=== PATIENT | female | born 2000 | race Caucasian/White ===

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

== ENCOUNTER 2019-07-09 14:35 | Emergency (ER) | payer OTHER ==
--- OUTSIDE RECORDS SUMMARY | 2019-07-09 15:19 | XMS REPORT | Continuity of Care Document ---
:2000 External Reference #:[id number] Author Name Xin [place] [address] Problems Active Problems Provider Date Asthma RICO Davis Onset: 12/22/2013 Allergic asthma Jose Walters MD Onset: 12/20/2015 Note: getting allergy shots Atopic dermatitis Anh Almaguer NP Onset: 02/28/2018 Social History Type Date Description Comments Sex Unknown Tobacco Use Start: Unknown Patient smoking status is unknown Guns in Home Yes, Locked Up Allergies, Adverse Reactions, Alerts Active Allergies Reaction Severity Comments Date NKDA 12/21/2012 Dust Mites 12/22/2013 Grass 12/22/2013 Pollen 12/22/2013 Cats 12/22/2013 Dogs 12/22/2013 Medications Active Medications SIG Qnty Indications Ordering Date Provider Triamcinolone apply to affected 30gm L20.9 Anh Almaguer NP 02/28/2018 Acetonide area twice a day 0.025% Ointment for no more than 2 weeks Marie Allergy 1 by mouth every 30tabs Jose 08/03/2017 60mg day MD Selena Tablets Xopenex HFA inhale 2 puffs Unknown 45mcg/Act by mouth every 4 Aerosol hours as needed Dulera 2 puff twice a Unknown 200-5mcg/Act day Aerosol Lo Loestrin Fe 1 by mouth every Unknown 1mg-10 mcg day / 10 mcg Tablets History Medications Amoxicillin take 2 caps by 40caps J01.90 Xin Carrasquillo NP 12/28/2018 - 500mg mouth twice a 02/28/2019 Capsules day x 10 days Immunizations CPT Code Status Date Vaccine Lot # [id number] Given 02/20/2019 Influenza Virus Vaccine, Quadrivalent, Split, [id number] Preservative Free 99852 Given 02/20/2019 Flu Vaccine, Split [id number] Given 02/20/2019 Influenza Vaccine 6-35 M Im Preservative Free 61115 Given 02/28/2018 Influenza Virus Vaccine, Quadrivalent, Split, [id number] Preservative Free 22783 Given 02/28/2018 Flu Vaccine, Split 65565 Given 02/28/2018 Influenza Vaccine 6-35 M Im Preservative Free 30841 Given 2017 Trumenba [id number] 78089 Given 2016 Meningococcal Conjugate Vaccine (Menveo) [id number] 43591 Given 2016 Trumenba [id number] 97265 Given 12/21/2014 Flu Vaccine, Split [id number] 34111 Given 12/22/2013 Flu Vaccine, Split [id number] 34600 Given 11/01/2013 Gardasil [id number] 00158 Given 07/05/2013 Gardasil [id number] 78883 Given 01/24/2013 Flu Vaccine, Split [id number] 60790 Given 12/21/2012 Gardasil [id number] 20396 Given 01/07/2012 Flu Mist 41373 Given 12/10/2010 Menactra/menveo 83577 Given 12/10/2010 Tdap/Adacel 26664 Given 01/28/2010 Flu Mist 78537 Given 03/04/2009 [id number] 23870 Given 01/15/2009 Flu Mist 90136 Given 01/06/2008 Flu Vaccine, Split 36629 Given 01/06/2008 Hepatitis A Vaccine 49366 Given 05/26/2007 Flu Vaccine, Split 47058 Given 11/09/2006 Varicella/Chicken Pox Vaccine 73994 Given 11/09/2006 Hepatitis A Vaccine 01374 Given 03/20/2005 Flu Vaccine, Split 54647 Given 12/23/2004 IPV 22374 Given 12/23/2004 MMR 56773 Given 12/23/2004 DTaP 76426 Given 03/03/2004 Flu Vaccine, Split 38288 Given 03/08/2003 Flu Vaccine, Split 42268 Given 05/19/2002 Flu Vaccine, Split 60216 Given 04/10/2002 Flu Vaccine, Split 95603 Given 04/12/2001 DtaP-Hib 31825 Given 01/11/2001 Pneumococcal Vaccine 57572 Given 01/11/2001 IPV 64622 Given 01/11/2001 Varicella/Chicken Pox Vaccine 44773 Given 10/12/2000 Hepatitis B/Hib Combvax 09134 Given 10/12/2000 MMR 64906 Given 04/13/2000 DTaP 91914 Given 02/10/2000 Hep.B Pediatric/Adolescent 49750 Given 02/10/2000 IPV 86139 Given 02/10/2000 DTaP 29210 Given 1999 Hepatitis B/Hib Combvax 25239 Given 1999 IPV 97369 Given 1999 DTaP Vital Signs Date Vital Result Comment 06/27/2019 5:32pm Body Temperature 98.8 F BP Systolic 114 mmHg BP Diastolic 78 mmHg Heart Rate 111 /min Respiratory Rate 20 /min Weight 123.50 lb Weight Percentile 42nd 02/20/2019 3:05pm Body Temperature 98.5 F BP Systolic 127 mmHg BP Diastolic 83 mmHg Heart Rate 95 /min Height 61 inches 5'1" Height in cm's 154.9 cm Height Percentile 10 % Weight 126.12 lb Weight Percentile 48th BMI (Body Mass Index) 23.8 kg/m2 Body Mass Index Percentile 72 % Right Visual Acuity Distance 20/20 Left Visual Acuity Distance 20/20 Results Description No Information Available Procedures Date Code Description Status 02/20/2019 16483 Visual Acuity Screen Bilat. Completed 02/20/2019 26775 Auditometry, Pure Tone Bilat Completed Medical Devices Description No Information Available Encounters Type Date Location Provider Dx Diagnosis Office Visit 02/20/2019 Main Office Anh Almaguer NP Z00.00 Encntr for general 3:00p adult medical exam w/o abnormal findings Z23 Encounter for immunization Office Visit 12/28/2018 8:15a Main Office Xin Carrasquillo NP J01.90 Acute sinusitis, unspecified Assessments Date Code Description Provider 06/27/2019 K58.0 Irritable bowel syndrome with diarrhea Xin Carrasquillo NP 02/20/2019 Z00.00 Encounter for general adult medical examination Anh Almaguer NP without abnormal findings 02/20/2019 Z23 Encounter for immunization Anh Almaguer NP 12/28/2018 J01.90 Acute sinusitis, unspecified Xin Carrasquillo NP Plan of Treatment 06/27/2019 - Xin Carrasquillo, NPK58.0 Irritable bowel syndrome with diarrheaComments:We will refer to GI for further work up. It is suspected these episode are related to her anxiety.Follow up:As needed. Functional Status Description No Information Available Mental Status Description No Information Available Referrals Description No Information Available
[2019-07-09 15:25] VITALS: BP 107/70
[2019-07-09 15:36] LABS: Influenza A Molecular POSITIVE (Negative)
--- NOTE | 2019-07-09 15:47 | UC ---
FLU HPI - HPI Summary HPI Summary: 18-year-old female presents with sudden onset of general malaise, fatigue, headache, body aches, nasal congestion, mild sore throat, and a dry nonproductive cough. Reports nausea. No measured fever however is complaining of chills. She did receive her flu shot this season. Denies ear pain, dysphagia, chest pain, shortness of breath, wheezing, abdominal pain, vomiting, or diarrhea. - History of Current Complaint Chief Complaint: UCRespiratory Stated Complaint: FLU SYMPTOMS Time Seen by Provider: 07/09/19 15:19 Hx Obtained From: Patient Hx Last Menstrual Period: 3-4 months ago; on bcp Pain Intensity: 5 - Allergy/Home Medications Allergies/Adverse Reactions: Allergies Allergy/AdvReac Type Severity Reaction Status Date / Time No Known Allergies Allergy Verified 07/09/19 15:21 Home Medications: Home Medications Levalbuterol HFA INHALER* [Xopenex Hfa Inhaler*] 2 puff INH Q6H #1 mdi 09/26/17 [Rx Confirmed 07/09/19] Norethindr/Eth Estradiol(Nf) [Lo Loestrin Fe (NF)] 1 tab QAM 09/26/17 [History Confirmed 07/09/19] Benzonatate CAP* [Tessalon 100 MG CAP*] 100 mg PO TID PRN #21 cap 07/09/19 [Rx] Budesonide/Formote 80/4.5(NF) [Symbicort 80/4.5 (NF)] 2 puff BID 07/09/19 [ History Confirmed 07/09/19] Oseltamivir CAP* [Tamiflu CAP*] 75 mg PO BID #10 cap 07/09/19 [Rx] PMH/Surg Hx/FS Hx/Imm Hx Respiratory History: Asthma - Surgical History Surgical History: Yes Surgery Procedure, Year, and Place: wisdom teeth - Family History Known Family History: Positive: Other - asthma - Social History Occupation: Student Lives: Dormitory/Roommates Alcohol Use: None Substance Use Type: None Smoking Status (MU): Never Smoked Tobacco - Immunization History Vaccination Up to Date: Yes Review of Systems All Other Systems Reviewed And Are Negative: Yes Constitutional: Positive: Chills, Fatigue Skin: Negative: Rash ENT: Positive: Sore Throat, Nasal Discharge, Sinus Congestion. Negative: Ear Ache Respiratory: Positive: Cough. Negative: Shortness Of Breath Cardiovascular: Negative: Chest Pain Gastrointestinal: Positive: Nausea. Negative: Abdominal Pain, Vomiting, Diarrhea Genitourinary: Positive: Negative Musculoskeletal: Positive: Myalgia Neurological/Mental Status: Positive: Headache Is Patient Immunocompromised?: No Physical Exam - Summary Physical Exam Summary: GENERAL APPEARANCE: Well developed, well nourished, alert and cooperative, and appears to be in no acute distress. EYES: Conjunctiva clear. No drainage. EARS: External auditory canals and tympanic membranes clear, hearing grossly intact. NOSE: Moderate nasal congestion with clear nasal discharge. THROAT: Mild pharyngeal erythema without tonsilar inflammation, swelling, exudate, or lesions. Uvula midline. NECK: Neck supple, non-tender without lymphadenopathy. CARDIAC: Normal S1 and S2. No S3, S4 or murmurs. Rhythm is regular. There is no peripheral edema, cyanosis or pallor. Extremities are warm and well perfused. Capillary refill is less than 2 seconds. Peripheral pulses intact. LUNGS: Clear to auscultation without rales, rhonchi, wheezing or diminished breath sounds. Dry, nonproductive cough. ABDOMEN: Positive bowel sounds. Soft, nondistended, nontender. No guarding or rebound. No masses or hepatosplenomegally. MUSKULOSKELETAL: ROM intact to all extremities. No joint erythema or tenderness. Normal muscular development. Normal gait. SKIN: Skin normal color, texture and turgor with no lesions or eruptions. Triage Information Reviewed: Yes Vital Signs: Initial Vital Signs Temp 99.1 F 07/09/19 15:21 Pulse 124 07/09/19 15:21 Resp 16 07/09/19 15:21 BP 107/70 07/09/19 15:21 Pulse Ox 100 07/09/19 15:21 Vital Signs Reviewed: Yes Flu Course/Dx - Course Course Of Treatment: 18-year-old female presents with sudden onset of general malaise, fatigue, headache, body aches, nasal congestion, mild sore throat, and a dry nonproductive cough. Reports nausea. No measured fever however is complaining of chills. She did receive her flu shot this season. Denies ear pain, dysphagia, chest pain, shortness of breath, wheezing, abdominal pain, vomiting, or diarrhea. Afebrile. Tachycardic otherwise vital signs stable. Patient and moderate nasal congestion with clear nasal discharge, normal TMs, pharyngeal erythema without tonsillar swelling or exudate, no cervical lymphadenopathy, clear bilateral breath sounds, dry nonproductive cough, otherwise unremarkable exam. Rapid flu test was positive for influenza A. Reviewed results with the patient. With her history of asthma recommending that she start Tamiflu as well as symptomatic treatment. She was given a dose of ondansetron 4 mg PO in the clinic for the nausea. She is to follow up with her primary care provider in 3 days if symptoms are not improving. Anticipatory guidance and warning symptoms were reviewed with the patient. Verbalizes understanding and agrees with plan of care. - Differential Dx/Diagnosis Differential Diagnosis/HQI/PQRI: Bronchitis, Influenza, Pneumonia, Upper Respiratory Infection Provider Diagnosis: Influenza A Discharge ED - Sign-Out/Discharge Documenting (check all that apply): Patient Departure All imaging exams completed and their final reports reviewed: No Studies - Discharge Plan Condition: Stable Disposition: HOME Prescriptions: Benzonatate CAP* [Tessalon 100 MG CAP*] 100 mg PO TID PRN #21 cap PRN Reason: Cough Oseltamivir CAP* [Tamiflu CAP*] 75 mg PO BID #10 cap Patient Education Materials: Influenza (ED) Forms: *School Release Referrals: Jose Walters MD [Primary Care Provider] - 3 Days Additional Instructions: Your flu test in the clinic today was positive for influenza A. Start Tamiflu 1 capsule twice a day for 5 days. Get plenty of rest. Drink plenty of fluids to avoid dehydration especially if you are running any fever. Continue to use your inhalers as directed. Take over the counter acetaminophen (Tylenol) or ibuprofen (Advil, Motrin) according to directions as needed for pain or fever. Take Tessalon Perles 1 cap every 8 hours as needed for cough. Use salt water gargles several times a day if you have a sore throat. You may also use Chloraseptic spray or Cepacol lonzenges according to directions which contain a numbing medication and can provide some temporary relief from your sore throat. Follow up with your primary care provider in 3-5 days if symptoms persist. Seek immediate medical attention in the emergency room if you have fever greater than 100.5 F despite taking acetaminophen or ibuprofen, have chest pain , difficulty breathing, are unable to swallow, or have any worsening of symptoms. - Billing Disposition and Condition Condition: STABLE Disposition: Home
[2019-07-09] MEDS ORDERED: Ondansetron ODT TAB* 4 MG PO ONE (16:15)
[2019-07-09] MEDS ORDERED: Oseltamivir CAP* 75 MG CAP PO ONE (18:21)
== END 2019-07-09 16:20 | disposition home or self-care (01) ==
LOC: UCCORT 14:35
DX: J10.1 Influenza due to other identified influenza virus with other respiratory manifestations (principal); J45.909 Unspecified asthma, uncomplicated; Z79.51 Long term (current) use of inhaled steroids
CPT/HCPCS: 99212; A9270-GY; G0463